=== PATIENT | female | born 1965 | race Caucasian/White ===

== ENCOUNTER → 2016-07-06 | Outpatient (CLI) | payer OTHER ==
[~2016-07-06] MED LIST: ACET1PAK PO; OXYC1TAB3 PO; PENI-82 PO
== END | disposition home or self-care (01) ==
LOC: C.PATHSPEC 17:28
PROVIDERS: ATTEND Plastic Surgery
DX: D03.59 Melanoma in situ of other part of trunk (principal)

== ENCOUNTER → 2016-09-06 | Day surgery (SDC) | payer OTHER ==
[2016-08-29 13:07] VITALS: BMI 23.0
[~2016-09-06] VITALS: Ht 157.5 cm; Wt 56.8 kg
[~2016-09-06] MED LIST changes: -ACET1PAK PO; +LIDOCAINE HCL 2% 2 ML VIAL (20MG/ML) ONE; -OXYC1TAB3 PO; -PENI-82 PO; +PROPOFOL IV EMULSION 10 MG/ML 20 ML VIAL IV ONE; +SODIUM CHLORIDE 0.9% 500ML 500 ML IV ONE
[2016-09-06 08:25] VITALS: Ht 157.5 cm; Wt 56.8 kg
--- NOTE | 2016-09-06 08:39 | Endo History and Physical ---
History & Physical Date of Service: Sep 06, 2016. Chief Complaint: SCREENING Referring Physician: DR. DUEÑAS History of Present Illness 50 yo CF who presents for screening colonoscopy. Past Surgical History Hx Cardiac Surgery: No Hx Internal Defibrillator: No Hx Pacemaker: Yes (MOST RECENT 2009) Hx Abdominal Surgery: Yes ( X2, [facility]) Hx of Implantable Prosthesis: No Hx Post-Op Nausea and Vomiting: No Hx Cancer Surgery: No Hx Thoracic Surgery: No Hx Orthopedic: No Hx Urinary Tract Surgery: No Family History None Social History Smoking Status: Never Smoker Hx Substance Use: No Hx Alcohol Use: No Allergies Coded Allergies: Etomidate (Verified Allergy, Mild, UNKNOWN REACTION, 09/06/16) "[facility] [place] TOLD ME TO NEVER TAKE IT AGAIN" Current Medications Reported Home Medications Medications Dose Route/Sig Max Daily Dose Days Date Category No Active Prescriptions or Reported Medications Rx Vital Signs Weight (Kilograms): 56.82 Height (Feet): 5 Height (Inches): 2 Date Time Temp Pulse Resp B/P (MAP) Pulse Ox O2 Delivery O2 Flow Rate FiO2 09/06/16 08:33 36.7 70 16 118/72 (87) 100 Room Air Physical Exam General Appearance: WD/WN, no apparent distress Respiratory/Chest: Auscultation: breath sounds normal Cardiovascular: Heart Auscultation: RRR Abdomen: Bowel Sounds: normal Inspection & Palpation: soft, non-distended, no tenderness, guarding & rebound Assessment and Plan Assessment: 50 yo CF who presents for screening colonoscopy. Plan: Proceed with colonoscopy.
--- NOTE | 2016-09-06 09:30 | GI REPORT ---
Procedure Date: 09/06/2016 8:44 AM Procedure: Colonoscopy Indications: Screening for colorectal malignant neoplasm Medicines: Monitored Anesthesia Care Complications: No immediate complications. Estimated Blood Loss: Estimated blood loss: none. Procedure: Pre-Anesthesia Assessment: - Prior to the procedure, a History and Physical was performed, and patient medications and allergies were reviewed. The patient's tolerance of previous anesthesia was also reviewed. The risks and benefits of the procedure and the sedation options and risks were discussed with the patient. All questions were answered, and informed consent was obtained. Prior Anticoagulants: The patient has taken no previous anticoagulant or antiplatelet agents. ASA Grade Assessment: II - A patient with mild systemic disease. After reviewing the risks and benefits, the patient was deemed in satisfactory condition to undergo the procedure. After I obtained informed consent, the scope was passed under direct vision. Throughout the procedure, the patient's blood pressure, pulse, and oxygen saturations were monitored continuously. The scope was introduced through the anus and advanced to the terminal ileum. The colonoscopy was performed without difficulty. The patient tolerated the procedure well. The quality of the bowel preparation was good. The terminal ileum, ileocecal valve, appendiceal orifice, and rectum were photographed. Findings: Two sessile polyps were found in the rectum and in the transverse colon. The polyps were 3 to 4 mm in size. These polyps were removed with a cold snare. Resection and retrieval were complete. Impression: - Two 3 to 4 mm polyps in the rectum and in the transverse colon, removed with a cold snare. Resected and retrieved. Recommendation: - Resume previous diet. - Continue present medications. - Repeat colonoscopy for surveillance based on pathology results. - Return to primary care physician as previously scheduled. Jassi Mariano, 09/06/2016 9:29:35 AM This report has been signed electronically. Note Initiated On: 09/06/2016 8:44 AM I attest to the content of the Intraoperative Record and orders documented therein, exceptions below
--- NOTE | 2016-09-06 09:31 | Discharge Instructions ---
Endoscopy Patient Instructions Date / Procedure(s) Performed Sep 06, 2016. Colonoscopy Allergy Information Coded Allergies: Etomidate (Verified Allergy, Mild, UNKNOWN REACTION, 09/06/16) "[facility] TOLD ME TO NEVER TAKE IT AGAIN" Discharge Date / Findings Sep 06, 2016. Colon polyp Rectal polyp Medication Instructions OK to resume all medications today as prescribed Reported Home Medications Medications Dose Route/Sig Max Daily Dose Days Date Category No Active Prescriptions or Reported Medications Rx Provider Instructions Activity Restrictions - No exercising or heavy lifting for 24 hours. - Do not drink alcohol the day of the procedure. - Do not drive a car or operate machinery until the day after the procedure. - Do not make any important decisions or sign important papers in 24 hours after the procedure. Following Day: - Return to full activity which may include returning to work/school. Diet Start your diet with liquids and light foods (jello, soup, juice, toast). Then eat your usual diet if not nauseated. Treatment For Common After Affects For mild abdominal pain, bloating, or excessive gas: - Rest - Eat lightly - Lie on right side Follow-Up Information Follow-up with DR. DUEÑAS as scheduled Anesthesia Information What You Should Know You have had a procedure that required some medicine to reduce anxiety and discomfort. This treatment is called moderate sedation. After receiving the treatment, you may be sleepy, but you will be able to breathe on your own. The effects of the treatment may last for several hours. Follow these instructions along with Activity/Diet recommendations noted above: * Do NOT do anything where dizziness or clumsiness would be dangerous. * Rest quietly at home today, then you can be up and about tomorrow. * Have a responsible person stay with you the rest of today. * You may have had an I.V. today. If so, you may take the dressing off later today. Recommendations Call your doctor if: * Trouble breathing * Continuous vomiting for more than 24 hours * Temperature above 101 degrees * Severe abdominal pain or bloating * Pain not relieved by pain medicine ordered * There is increased drainage or redness from any incision * A large amount of rectal bleeding greater than 2-3 tablespoons. (If you had a polyp/s removed or have hemorrhoids, a small amount of blood - from the rectum is to be expected.) * You have any unanswered questions or concerns. IN THE EVENT OF A SERIOUS EMERGENCY, GO TO THE NEAREST EMERGENCY ROOM Your discharge instructions were prepared by provider Jassi Mariano. Patient Instructions Signature Page Yelitzawinnie Ahumada Patient (or Guardian) Signature/Date: I have read and understand the instructions given to me by my caregivers. Caregiver/RN/Doctor Signature/Date: The above-named patient and/or guardian has received patient instructions on this date. + Original Patient Signature Page (only) stays with chart. Please make copy for patient.
[2016-09-06 09:54] VITALS: BP 102/67; PULSE 69; O2SAT 99
--- NOTE | 2016-09-06 09:56 | Anesthesiology Progress Note ---
Anesthesia Post Op Note Date & Time Sep 06, 2016 at 09:56 Vital Signs Pain Intensity: 0 Vital Signs Past 12 Hours Date Time Temp Pulse Resp B/P (MAP) Pulse Ox O2 Delivery O2 Flow Rate FiO2 09/06/16 09:38 70 16 106/69 (81) 100 Room Air 09/06/16 09:24 70 16 92/62 (72) 100 Room Air 09/06/16 08:33 36.7 70 16 118/72 (87) 100 Room Air Notes Mental Status: alert / awake / arousable, participated in evaluation Pt Amnestic to Procedure: Yes Nausea / Vomiting: adequately controlled Pain: adequately controlled Airway Patency, RR, SpO2: stable & adequate BP & HR: stable & adequate Hydration State: stable & adequate Anesthetic Complications: no major complications apparent
== END | disposition home or self-care (01) ==
LOC: C.GI 08:08
PROVIDERS: ATTEND Internal Medicine
DX: Z12.11 Encounter for screening for malignant neoplasm of colon (principal); D12.3 Benign neoplasm of transverse colon; K62.1 Rectal polyp; Z90.710 Acquired absence of both cervix and uterus; Z95.0 Presence of cardiac pacemaker; I49.5 Sick sinus syndrome; K21.9 Gastro-esophageal reflux disease without esophagitis

== ENCOUNTER → 2017-06-21 | Outpatient (CLI) | payer OTHER ==
--- NOTE | 2017-06-21 13:42 | DIAGNOSTIC IMAGING REPORT ---
R RIBS UNILATERAL WITH PA CHEST CLINICAL HISTORY: 51 years-old Female presenting with R07.81 Rib pain on right [id number]. TECHNIQUE: PA view of the chest as well as frontal and oblique views of the right ribs were obtained. COMPARISON: Chest CT from 10/08/2012. FINDINGS: Left subclavian pacer with leads to the right atrium and right ventricular apex. Cardiomediastinal silhouette normal. Lungs and pleural spaces clear. Upper abdomen normal. No displaced right rib fracture. Subtle cortical deformities suggested along the anterior seventh and eighth ribs. IMPRESSION: 1. Subtle cortical deformities suggested along the anterior seventh and eighth ribs. Correlate with point tenderness. No displaced rib fracture. 2. No acute cardiopulmonary disease. Electronically signed by: Tim Lechuga M.D. 06/21/2017 1:41 PM Dictated Date/Time: 06/21/2017 1:39 PM
== END | disposition home or self-care (01) ==
LOC: C.RAD1850 13:06
PROVIDERS: ATTEND Internal Medicine
DX: R07.81 Pleurodynia (principal)

== ENCOUNTER 2023-12-15 18:44 | Observation (INO) ==
[2023-12-15 19:31] LABS: Appearance Urine Clear (Clear); Bacteria Urine Automated None Seen (None Seen); Bilirubin Urine Negative (Negative); Blood Urine Negative (Negative); Cast Urine Automated 0-2 /lpf (0-2); Color Urine Yellow; Epithelial Cell Urine Auto 0-2 /hpf (0-2); Glucose Urine UA Negative (Negative); Ketones Urine Trace (Negative); Leukocyte Esterase Urine Trace (Negative); Nitrite Urine Negative (Negative); Protein Urine Trace (Negative); RBC Urine Automated 0-2 /hpf (0-2); Specific Gravity Urine 1.026 (1.000-1.030); Urobilinogen Urine Negative (Negative); pH Urine 5.5 (4.5-7.5)
[2023-12-15 19:51] LABS: Basophils # (auto) 0.04 K/uL (0.00-0.20); Basophils % (auto) 0.3 %; Eosinophils # (auto) 0.01 K/uL (0.00-0.50); Eosinophils % (auto) 0.1 %; Hematocrit (blood only) 43.7 % (37.0-47.0); Hemoglobin 15.9 g/dl (12.0-16.0); Immature Granulocytes # (auto) 0.05 K/uL (0.01-0.20); Immature Granulocytes % (auto) 0.4 %; Lymphocytes # (auto) 2.29 K/uL (1.20-3.40); Lymphocytes % (auto) 16.8 %; Mean Corpuscular Hemoglobin 33.7 pg (25.0-34.0); Mean Corpuscular Hgb Conc 36.4 g/dL (32.0-36.0); Mean Corpuscular Volume 92.6 fL (80.0-100.0); Mean Platelet Volume 10.4 fL (9.4-12.4); Monocytes # (auto) 0.79 K/uL (0.11-0.59); Monocytes % (auto) 5.8 %; Neutrophils # (auto) 10.48 K/uL (1.40-6.50); Neutrophils % (auto) 76.6 %; Platelet Count 285 K/uL (130-400); RDW Coefficient of Variation 12.3 % (11.5-14.5); RDW Standard Deviation 42.1 fL (36.4-46.3); Red Blood Count 4.72 M/uL (4.20-5.40); White Blood Count 13.66 K/ul (4.8-10.8)
[2023-12-15 19:59] LABS: Albumin Globulin Ratio 2.1 (0.9-2); Albumin Level 5.1 gm/dl (3.4-5.0); BUN Creatinine Ratio 12.4 (10-20); Calcium 10.1 mg/dl (8.6-10.3); Creatinine Clr Calc Pharmacy 53.8 ml/min; Globulin 2.4 gm/dl (2.5-4.0); Total Protein 7.5 gm/dl (6.0-8.3)
[2023-12-15 20:00] LABS: Pregnancy Test, Serum Negative (Negative)
[2023-12-15] MEDS: OPTIRAY 320 125ml IV ONE (20:06)
[2023-12-15 20:09] LABS: INR 1.1 (0.9-1.1); Prothrombin Time 11.4 Seconds (9.0-12.0)
--- NOTE | 2023-12-15 20:21 | Emergency Department Note ---
Impression & Plan BRBPR (bright red blood per rectum), Abdominal pain, Leukocytosis, Acute hypokalemia ED Provider Note HISTORY OF PRESENT ILLNESS: Patient is a 58-year-old female presenting with abdominal pain and bright red blood per rectum. Patient reports that she woke up today and was feeling generally unwell. She woke up suddenly at 4 AM feeling like she had to have a bowel movement. Reports that she was unable to and went back to bed and then at 9 AM she had an episode of bright red bloody stool in the toilet bowl. She denies any pain with the bowel movement. She states she has had a total of 4 episodes of bright red bloody stool throughout the day today. Reports that it does not even look like there is fecal material and it just looks like there is blood. Denies any passage of clots. She is not on any anticoagulant or antiplatelet therapies. She complains of generalized abdominal pain and nausea. She denies any vomiting. Reports an abdominal surgical history significant for sections and an appendectomy. She denies any recent fevers. Denies any dysuria or hematuria. ROS: as above PHYSICAL EXAM: Constitutional: Patient appears in no acute distress. HENT: Head: Normocephalic and atraumatic. Eyes: EOMI, PERRL Mouth/Throat: Mucous membranes moist. Neck: Trachea midline. Neck supple. Cardiovascular: RRR, No murmurs, rubs or gallops. Intact distal pulses. Pulmonary/Chest: No respiratory distress. Breath sounds clear and equal bilaterally. No wheezes or rales. Abdominal: Abdomen soft, no rebound or guarding. Diffuse TTP Musculoskeletal: No edema, tenderness or deformity noted. Skin: Warm and dry. No rash, erythema, pallor or cyanosis Psychiatric: Appropriate mood and affect for situation. Neurological: Alert and keenly responsive. CN II-XII grossly intact, moving all extremities equally and fully. MDM: - Vitals signs stable - History obtained via patient. History as above. - Chronic conditions affecting care: sick sinus syndrome (s/p pacemaker); GERD; HLD; obesity - Differential diagnoses include, but are not limited to: bleeding peptic ulcer; aortic dissection vs aneurysm; diverticular bleed; hemorrhoidal bleed - Order placed for continuous cardiac monitoring. At this time, monitor showed rate of 70 bpm with normal sinus rhythm, per my interpretation. - External medical records reviewed. Colonoscopy dated 11/28/2021 was reviewed. Patient had a normal colonoscopy at that time and no specimens were collected. - Laboratory workup interpreted by myself showed leukocytosis (WBC 13.66); normal hemoglobin (15.9); normal PT/INR; hypokalemia (K 3.0); normal lactate; normal lipase; normal liver function - UA noted to have WBCs and trace leukocyte esterase. No bacteria noted and patient asymptomatic - will await urine culture - CT abdomen/pelvis with IV contrast asymmetric mucosal thickening throughout the colon most prominent at the distal descending and sigmoid colonic segments with subtle pericolonic fat stranding and hyperemia. No active extravasation of contrast noted. This is a concerning site for the GI bleed. - Patient complaining of 5 out of 10 abdominal pain and nausea. Given 1 g IV Tylenol and 4 mg IV Zofran. Given her leukocytosis and pericolonic fat stranding on CT scan, IV Zosyn was empirically ordered. Will admit to hospitalist service for further workup and GI consultation - Discussion was had with case management rn about patient's case and need for admission - Hospitalist consulted for admission - Patient admitted to [facility] hospitalist service for further evaluation and management. ASSESSMENT AND PLAN: Diagnosis: bright red blood per rectum; abdominal pain; leukocytosis; acute hypokalemia Plan: admit Past Med/Surg History Problem List (Updated 12/15/23 @ 21:37 by Rianna De La Cruz MD) Acute hypokalemia (Acute) Leukocytosis (Acute) Abdominal pain (Acute) BRBPR (bright red blood per rectum) (Acute) BMI 23.0-23.9, adult Encounter for health maintenance examination Rib injury Subacromial bursitis Rotator cuff tendinitis Decreased ROM of right shoulder GERD (gastroesophageal reflux disease) History of colon polyps Encounter for pre-operative examination Bilateral pubic rami fractures Abnormal weight gain GERD (gastroesophageal reflux disease) Hypertriglyceridemia Dietary counseling and surveillance Shoulder pain Encounter for health maintenance examination SSS (sick sinus syndrome) Hip fracture HX Pacemaker (Chronic) LAST CHECKED 11/2021-- FOLLOWS W/ DR FRIED [employer] Osteoporosis Medical History Hip fracture HX History of bradycardia PACEMAKER INSERTION History of COVID-19 08/30/2021- FLU LIKE SYMPTOMS, ACHY, FATIGUE, CHILLS, FEVER, NO HOSPITALIZATION, NO CURRENT ISSUES Osteoporosis Pacemaker LAST CHECKED 11/2021-- FOLLOWS W/ DR FRIED [employer] Surgical History Hx of colonoscopy S/P abdominal hysterectomy S/P placement of cardiac pacemaker H/O oral surgery S/P section S/P appendectomy History of ankle surgery H/O: hysterectomy Family History Father Coronary heart disease Diabetes Nephrolithiasis Mother Osteoporosis Aortic aneurysm Grandmother (Maternal) Osteoporosis Sister Nephrolithiasis Other Myocardial infarction Denies family history of Ovarian cancer Prostate cancer Breast cancer Colorectal cancer Social History Smoking Status: Never smoker Second Hand Exposure: No; Do You Dip or Chew Tobacco: No; Hx Alcohol Use: No (social) Hx Substance Use: No Preferred Language: Croatian Communication Ability: Effective Visual Impairment: No Limitations Hearing Ability: Normal 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 Beliefs That Will Affect Care: None marital status: Current Living Situation: Spouse current occupational status: employed Feels Safe at Home: Yes Childhood Exposure to Second-Hand Smoke: No Dental Care, Regularly: Yes Physical Activity Frequency: 1-2 Times per Week Seatbelt Use: always Assistive Devices: Contacts and Glasses Allergies Allergies Allergy/AdvReac Type Severity Reaction Status Date / Time etomidate Allergy Mild UNKNOWN Verified 08/31/23 07:58 REACTION Home Meds Home Medications Medication Instructions Recorded Confirmed calcium carbonate 600 mg PO QAM 10/10/19 12/15/23 alendronate 70 mg tablet 70 mg PO WK 12/15/23 12/15/23 Previous Rx's Medication Instructions Recorded hydrochlorothiazide 25 mg tablet 25 mg PO DAILY PRN edema #90 tabs 08/31/23 Results & Data (ED) Vital Signs Vital Signs - 24 hr 12/15/23 18:52 12/15/23 20:00 12/15/23 21:10 Temperature 36.6 C Temperature Source Temporal Artery Scan Pulse Rate - Lying 70 Pulse Rate - Sitting 70 Pulse Rate - Standing 76 Pulse Rate 87 70 Pulse Rate [Apical] Respiratory Rate 20 Blood Pressure - Lying 111/69 Blood Pressure - Sitting 105/73 Blood Pressure- Standing 99/70 L Blood Pressure 124/72 Blood Pressure [Left Arm] Blood Pressure Mean 89 Blood Pressure Mean [Left Arm] Blood Pressure Position [Left Arm] Pulse Oximetry 99 Oxygen Delivery Method Room Air Sepsis Recent Fever Within 48 Hours No Sepsis New/Unexplained Change in Mental Status N/A Sepsis Action Taken by Nursing No Action Required 12/15/23 21:32 Temperature Temperature Source Pulse Rate - Lying Pulse Rate - Sitting Pulse Rate - Standing Pulse Rate Pulse Rate [Apical] 70 Respiratory Rate 16 Blood Pressure - Lying Blood Pressure - Sitting Blood Pressure- Standing Blood Pressure Blood Pressure [Left Arm] 110/79 Blood Pressure Mean Blood Pressure Mean [Left Arm] 89 Blood Pressure Position [Left Arm] Semi-fowlers Pulse Oximetry 99 Oxygen Delivery Method Room Air Sepsis Recent Fever Within 48 Hours Sepsis New/Unexplained Change in Mental Status Sepsis Action Taken by Nursing Laboratory Data 12/15/23 19:06 12/15/23 19:06 Lab Results 12/15/23 Range/Units 19:06 WBC 13.66 H (4.8-10.8) K/ul RBC 4.72 (4.20-5.40) M/uL Hgb 15.9 (12.0-16.0) g/dl Hct 43.7 (37.0-47.0) % MCV 92.6 (80.0-100.0) fL MCH 33.7 (25.0-34.0) pg MCHC 36.4 H (32.0-36.0) g/dL RDW Std Deviation 42.1 (36.4-46.3) fL RDW Coeff of [place] 12.3 (11.5-14.5) % Plt Count 285 (130-400) K/uL MPV 10.4 (9.4-12.4) fL Immature Gran % (Auto) 0.4 % Neut % (Auto) 76.6 % Lymph % (Auto) 16.8 % [place] % (Auto) 5.8 % Eos % (Auto) 0.1 % Baso % (Auto) 0.3 % Neut # (Auto) 10.48 H (1.40-6.50) K/uL Lymph # (Auto) 2.29 (1.20-3.40) K/uL [place] # (Auto) 0.79 H (0.11-0.59) K/uL Eos # (Auto) 0.01 (0.00-0.50) K/uL Baso # (Auto) 0.04 (0.00-0.20) K/uL Immature Gran # (Auto) 0.05 (0.01-0.20) K/uL PT 11.4 (9.0-12.0) Seconds INR 1.1 (0.9-1.1) Sodium 141 (136-145) mmol/L Potassium 3.0 L (3.5-5.1) mmol/L Chloride 100 (98-107) mmol/L Carbon Dioxide 31 (21-32) mmol/L Anion Gap 10 (3-11) BUN 11 (6-23) mg/dl Creatinine 0.89 (0.6-1.2) mg/dl Est Cr Clr Drug Dosing 53.8 ml/min eGFR 74.64 BUN/Creatinine Ratio 12.4 (10-20) Glucose 88 (70-99(Fasting)) mg/dl Lactate 1.2 (0.4-2.0) mmol/L Calcium 10.1 (8.6-10.3) mg/dl Total Bilirubin 1.0 (0.2-1.0) mg/dl AST 19 (13-39) U/L ALT 25 (7-52) U/L Alkaline Phosphatase 66 (34-104) U/L Total Protein 7.5 (6.0-8.3) gm/dl Albumin 5.1 H (3.4-5.0) gm/dl Globulin 2.4 L (2.5-4.0) gm/dl Albumin/Globulin Ratio 2.1 H (0.9-2) Lipase 72 (11-82) U/L HCG, Qual Negative (Negative) Urine Color Yellow Urine Appearance Clear (Clear) Urine pH 5.5 (4.5-7.5) Ur Specific [place] 1.026 (1.000-1.030) Urine Protein Trace H (Negative) Urine Glucose (UA) Negative (Negative) Urine Ketones Trace H (Negative) Urine Blood Negative (Negative) Urine Nitrite Negative (Negative) Urine Bilirubin Negative (Negative) Urine Urobilinogen Negative (Negative) Ur Leukocyte Esterase Trace H (Negative) Urine WBC (Auto) 11-20 H (0-5) /hpf Urine RBC (Auto) 0-2 (0-2) /hpf U Hyaline Cast (Auto) 0-2 (0-2) /lpf U Epithel Cells (Auto) 0-2 (0-2) /hpf Urine Bacteria (Auto) None Seen (None Seen) Administered Medications Discontinued Medications Ioversol (Optiray 320 125ml) 119 ml IV ONCE ONE Stop: 12/15/23 20:07 Last Admin: 12/15/23 20:06 Dose: 119 ml Documented By: EDK Imaging Data Radiologist's Impression: Abdomen/Pelvis CTA 12/15/23 18:59 Exam(s): CTA ABDOMEN + PELVIS With Contrast IV Amt: OPTIRAY 320 119ML EXAM: CT Angiography Abdomen and Pelvis With Intravenous Contrast CLINICAL HISTORY: abd pain; right red blood per rectum. TECHNIQUE: Axial computed tomographic angiography images of the abdomen and pelvis with intravenous contrast. CTDI is 20.96 mGy and DLP is 400.16 mGy-cm. Automated exposure control was utilized for the study. A dose lowering technique was utilized adhering to the principles of ALARA. MIP reconstructed images were created and reviewed. CONTRAST: Patient received OPTIRAY 320 119ML of IV contrast COMPARISON: No relevant prior studies available. FINDINGS: VASCULATURE: Aorta: No acute findings. No abdominal aortic aneurysm. No dissection. Celiac trunk and mesenteric arteries: No acute findings. No occlusion or significant stenosis. Renal arteries: No acute findings. No occlusion or significant stenosis. Iliac arteries: No acute findings. No occlusion or significant stenosis. Lung bases: Unremarkable. No mass. No consolidation. ABDOMEN: Liver: Hepatic steatosis. Gallbladder and bile ducts: Unremarkable. No calcified stones. No ductal dilation. Pancreas: Unremarkable. No ductal dilation. No mass. Spleen: Unremarkable. No splenomegaly. Adrenals: Unremarkable. No mass. Kidneys and ureters: Unremarkable. No hydronephrosis. No solid mass. Stomach and bowel: Precontrast imaging was not performed, limiting evaluation, given scattered hyperdense material throughout several mid to distal small bowel loops in the pelvis. No evidence for bowel obstruction. There is asymmetric mucosal thickening throughout the colon, most prominent involving the distal descending and sigmoid segments with subtle pericolonic fat stranding and hyperemia. No active intraluminal arterial contrast extravasation noted. Stomach is moderately distended with fluid and gas. There is minimal hyperdensity within the gastric rugae along the posterior lateral aspect of the mid body of the stomach. No gastric wall thickening. PELVIS: Appendix: No findings to suggest acute appendicitis. Bladder: Unremarkable. No mass. Reproductive: Status post hysterectomy. ABDOMEN and PELVIS: Intraperitoneal space: Unremarkable. No significant fluid collection. No free air. Bones/joints: No acute fracture. No dislocation. Soft tissues: Unremarkable. Lymph nodes: Unremarkable. No enlarged lymph nodes. IMPRESSION: 1. Precontrast imaging was not performed, limiting evaluation, given scattered hyperdense material throughout several mid to distal small bowel loops in the pelvis. 2. No evidence for bowel obstruction. There is asymmetric mucosal thickening throughout the colon, most prominent involving the distal descending and sigmoid colonic segments with subtle pericolonic fat stranding and hyperemia. No active intraluminal arterial contrast extravasation noted. However, this is the presumed site of the reported GI bleed. Given the most prominent abnormal findings, this is favored over a small bowel source given the clinical history and CT findings. Inflammatory or infectious colitis is the primary consideration. No pneumatosis or pneumoperitoneum. Electronically signed by: Ezekiel Farah MD 12/15/23 21:17 PM Discharge Plan Visit Data Chief Complaint: Abdominal Pain Stated Complaint: ABD PAIN, BACK, NAUSEA ED Provider: Rianna De La Cruz Discharge Problem: BRBPR (bright red blood per rectum), Abdominal pain, Leukocytosis, Acute hypokalemia Forms Stand Alone Forms: My [employer] Prescriptions Prescriptions: No Action calcium carbonate 600 mg calcium (1,500 mg) tablet 600 mg PO QAM hydrochlorothiazide 25 mg tablet 25 mg PO DAILY PRN (Reason: edema) Qty: 90 2RF alendronate 70 mg tablet 70 mg PO WK Rx Instructions: MONDAYS Referrals Referrals: Miguel Yee MD [Primary Care Provider] -
--- NOTE | 2023-12-15 21:17 | CT Scan Report ---
Exam(s): CTA ABDOMEN + PELVIS With Contrast IV Amt: OPTIRAY 320 119ML EXAM: CT Angiography Abdomen and Pelvis With Intravenous Contrast CLINICAL HISTORY: abd pain; right red blood per rectum. TECHNIQUE: Axial computed tomographic angiography images of the abdomen and pelvis with intravenous contrast. CTDI is 20.96 mGy and DLP is 400.16 mGy-cm. Automated exposure control was utilized for the study. A dose lowering technique was utilized adhering to the principles of ALARA. MIP reconstructed images were created and reviewed. CONTRAST: Patient received OPTIRAY 320 119ML of IV contrast COMPARISON: No relevant prior studies available. FINDINGS: VASCULATURE: Aorta: No acute findings. No abdominal aortic aneurysm. No dissection. Celiac trunk and mesenteric arteries: No acute findings. No occlusion or significant stenosis. Renal arteries: No acute findings. No occlusion or significant stenosis. Iliac arteries: No acute findings. No occlusion or significant stenosis. Lung bases: Unremarkable. No mass. No consolidation. ABDOMEN: Liver: Hepatic steatosis. Gallbladder and bile ducts: Unremarkable. No calcified stones. No ductal dilation. Pancreas: Unremarkable. No ductal dilation. No mass. Spleen: Unremarkable. No splenomegaly. Adrenals: Unremarkable. No mass. Kidneys and ureters: Unremarkable. No hydronephrosis. No solid mass. Stomach and bowel: Precontrast imaging was not performed, limiting evaluation, given scattered hyperdense material throughout several mid to distal small bowel loops in the pelvis. No evidence for bowel obstruction. There is asymmetric mucosal thickening throughout the colon, most prominent involving the distal descending and sigmoid segments with subtle pericolonic fat stranding and hyperemia. No active intraluminal arterial contrast extravasation noted. Stomach is moderately distended with fluid and gas. There is minimal hyperdensity within the gastric rugae along the posterior lateral aspect of the mid body of the stomach. No gastric wall thickening. PELVIS: Appendix: No findings to suggest acute appendicitis. Bladder: Unremarkable. No mass. Reproductive: Status post hysterectomy. ABDOMEN and PELVIS: Intraperitoneal space: Unremarkable. No significant fluid collection. No free air. Bones/joints: No acute fracture. No dislocation. Soft tissues: Unremarkable. Lymph nodes: Unremarkable. No enlarged lymph nodes. IMPRESSION: 1. Precontrast imaging was not performed, limiting evaluation, given scattered hyperdense material throughout several mid to distal small bowel loops in the pelvis. 2. No evidence for bowel obstruction. There is asymmetric mucosal thickening throughout the colon, most prominent involving the distal descending and sigmoid colonic segments with subtle pericolonic fat stranding and hyperemia. No active intraluminal arterial contrast extravasation noted. However, this is the presumed site of the reported GI bleed. Given the most prominent abnormal findings, this is favored over a small bowel source given the clinical history and CT findings. Inflammatory or infectious colitis is the primary consideration. No pneumatosis or pneumoperitoneum. Electronically signed by: Ezekiel Farah MD 12/15/23 21:17 PM
[2023-12-15] MEDS: ONDANSETRON INJ 2 MG/ML 2 ML VIAL IV STA (21:38)
[2023-12-15] MEDS: ACETAMINOPHEN 1,000 MG/100 ML VIAL IV STA (21:42)
[2023-12-15] MEDS: PIPERACILLIN/TAZOBACTAM 4.5 GM/100 ML BAG IV ONE (21:47)
[2023-12-15 22:15] LABS: Magnesium 2.1 mg/dl (1.7-2.4)
--- NOTE | 2023-12-15 22:33 | History & Physical Report ---
Date of Service December 15, 2023 Assessment & Plan (1) BRBPR (bright red blood per rectum): (2) Diverticulitis: (3) Colitis: (4) Abdominal pain: (5) Acute hypokalemia: (6) SSS (sick sinus syndrome): (7) Pacemaker: Admission and Anticipated Discharge Date Admission Date: Colitis/diverticulitis/bright red blood per rectum- N.p.o. after midnight Hemoglobin 15.9 on admission, with type and screen ordered Most recent colonoscopy on 11/24/2021 with the entire examined colon being normal CT scan and physical examination most consistent diverticulitis versus colitis No new food or questionable food intakes Order stool PCR and stool for C. difficile Zosyn 4.5 g IV every 8 hours Pantoprazole 40 mg IV daily Acetaminophen 1 g IV every 8 hours as needed for mild pain or fever Morphine sulfate 2 mg IV every 4 hours as needed for moderate pain Zofran 4 mg IV every 6 hours as needed NSS + KCl 20 mEq at 100 mL/h x 1 L. Patient reports that she has not taken HCTZ for months. She does report having taking ibuprofen 400 mg daily for shoulder discomfort for about 5 days during the past week Consult gastroenterology History of Present Illness Chief Complaint: The patient presents to the emergency department with report of abdominal pain and 4 episodes of bright red blood per rectum. She reports that about 4:00 this morning, she awoke with a sense of needing to move her bowels, but was unable to. Later on in the morning at about 9:00, she had an episode of bright red blood in the toilet bowl, and then had 3 additional episodes throughout the day. She did develop left lower quadrant discomfort, and nausea without vomiting. Travels or sick exposures. She denies any unusual food intakes. She has had routine colonoscopies every 5 years, with the most recent being 2 years ago without usual findings other than polyps. Primary Care Provider: Miguel Yee MD The patient is a 58-year-old female with a past medical history including GERD, colon polyps, bilateral pubic rami fractures, GERD, hypertriglyceridemia, SSS status post pacemaker, hip fracture, and osteoporosis. She presents to the emergency department with symptoms as noted above. As part of her workup, she did undergo CTA of abdomen and pelvis, which showed mucosal thickening throughout most of the colon, with most prominent in the distal descending colon and sigmoid colon, with inflammatory versus infectious colitis as a diagnosis of exclusion. Allergies Allergy/AdvReac Type Severity Reaction Status Date / Time etomidate Allergy Mild UNKNOWN Verified 12/15/23 21:38 REACTION Home Medications Medication Instructions Recorded Confirmed Type calcium carbonate 600 mg PO QAM 10/10/19 12/15/23 History hydrochlorothiazide 25 mg tablet 25 mg PO DAILY PRN edema #90 tabs 08/31/23 12/15/23 Rx alendronate 70 mg tablet 70 mg PO WK 12/15/23 12/15/23 History cholecalciferol (vitamin D3) 25 25 mcg PO QAM 12/15/23 12/15/23 History mcg (1,000 unit) tablet (Vitamin D3) Past Med/Surg History Problem List (Updated 12/16/23 @ 03:07 by Abraham Handy MD) Colitis Diverticulitis Acute hypokalemia (Acute) Leukocytosis (Acute) Abdominal pain (Acute) BRBPR (bright red blood per rectum) (Acute) BMI 23.0-23.9, adult Encounter for health maintenance examination Rib injury Subacromial bursitis Rotator cuff tendinitis Decreased ROM of right shoulder GERD (gastroesophageal reflux disease) History of colon polyps Encounter for pre-operative examination Bilateral pubic rami fractures Abnormal weight gain GERD (gastroesophageal reflux disease) Hypertriglyceridemia Dietary counseling and surveillance Shoulder pain Encounter for health maintenance examination SSS (sick sinus syndrome) Hip fracture HX Pacemaker (Chronic) LAST CHECKED 11/2021-- FOLLOWS W/ KENNEDY NARANJO Osteoporosis Medical History Hip fracture HX History of bradycardia PACEMAKER INSERTION History of COVID-19 08/30/2021- FLU LIKE SYMPTOMS, ACHY, FATIGUE, CHILLS, FEVER, NO HOSPITALIZATION, NO CURRENT ISSUES Osteoporosis Pacemaker LAST CHECKED 11/2021-- FOLLOWS [place]/ KENNEDY NARANJO Surgical History Hx of colonoscopy S/P abdominal hysterectomy S/P placement of cardiac pacemaker H/O oral surgery S/P section S/P appendectomy History of ankle surgery H/O: hysterectomy Family History Father Coronary heart disease Diabetes Nephrolithiasis Mother Osteoporosis Aortic aneurysm Grandmother (Maternal) Osteoporosis Sister Nephrolithiasis Other Myocardial infarction Denies family history of Ovarian cancer Prostate cancer Breast cancer Colorectal cancer Social History Smoking Status: Never smoker Second Hand Exposure: No; Do You Dip or Chew Tobacco: No; Hx Alcohol Use: Yes Hx Substance Use: No Preferred Language: German Communication Ability: Effective Visual Impairment: No Limitations Hearing Ability: Normal Shoulder Boner Required: No Beliefs That Will Affect Care: None marital status: Current Living Situation: Spouse current occupational status: employed Feels Safe at Home: Yes Childhood Exposure to Second-Hand Smoke: No Dental Care, Regularly: Yes Physical Activity Frequency: 1-2 Times per Week Seatbelt Use: always Assistive Devices: Contacts Review of Systems Review of Systems: The patient denies chest pain, palpitations, shortness of breath, dyspnea on exertion, cough, lower extremity swelling, sore throat, fevers, chills, sweats, vomiting, blood in urine, dysuria, urinary frequency or urgency, lightheadedness, dizziness, headache, memory loss, loss of consciousness, rash, imbalance, focal or generalized weakness, numbness or tingling in arms or legs, generalized arthralgias or myalgias, back or neck pain, or night sweats. The review of systems is otherwise negative other than for that already noted above, and at least 10 systems have been reviewed. Physical Exam Physical Exam: The patient is awake, alert and oriented 3, well developed and well nourished, normocephalic and atraumatic, lying in bed and in no acute distress. HEENT--PERRL, EOMI, mucous membranes and oropharynx mildly dry. Neck--supple. No JVD. No bruits. Thyroid normal, trachea midline, no adenopathy. Heart--normal S1 and S2. No murmurs, rubs or gallops. Lungs--clear bilaterally, no respiratory distress, no accessory muscle use. Abdomen--normal bowel sounds and soft. Mildly tender left lower quadrant. Nondistended, no hernias or masses, no organomegaly. Extremities-- No edema. Dermatologic--normal skin turgor, normal color, no abnormal lymph nodes, no rash. Neurologic--cranial nerves II through XII grossly intact. Rheumatologic--normal range of motion. Psychiatric--normal affect. Results & Data Results & Data Vital Signs (Past 12 Hours) Vital Signs Temp Pulse Pulse Resp BP BP Pulse Ox 12/15/23 21:32 70 16 110/79 99 12/15/23 20:00 70 12/15/23 18:52 36.6 C 87 20 124/72 99 O2 Del Method 12/15/23 21:32 Room Air 12/15/23 20:00 12/15/23 18:52 Room Air Laboratory Results Laboratory Results WBC 13.66 K/ul (4.8-10.8) H 12/15/23 19:06 RBC 4.72 M/uL (4.20-5.40) 12/15/23 19:06 Hgb 15.9 g/dl (12.0-16.0) 12/15/23 19:06 Hct 43.7 % (37.0-47.0) 12/15/23 19:06 MCV 92.6 fL (80.0-100.0) 12/15/23 19:06 MCH 33.7 pg (25.0-34.0) 12/15/23 19:06 MCHC 36.4 g/dL (32.0-36.0) H 12/15/23 19:06 RDW Std Deviation 42.1 fL (36.4-46.3) 12/15/23 19:06 RDW Coeff of [place] 12.3 % (11.5-14.5) 12/15/23 19:06 Plt Count 285 K/uL (130-400) 12/15/23 19:06 MPV 10.4 fL (9.4-12.4) 12/15/23 19:06 Immature Gran % (Auto) 0.4 % 12/15/23 19:06 Neut % (Auto) 76.6 % 12/15/23 19:06 Lymph % (Auto) 16.8 % 12/15/23 19:06 [place] % (Auto) 5.8 % 12/15/23 19:06 Eos % (Auto) 0.1 % 12/15/23 19:06 Baso % (Auto) 0.3 % 12/15/23 19:06 Neut # (Auto) 10.48 K/uL (1.40-6.50) H 12/15/23 19:06 Lymph # (Auto) 2.29 K/uL (1.20-3.40) 12/15/23 19:06 [place] # (Auto) 0.79 K/uL (0.11-0.59) H 12/15/23 19:06 Eos # (Auto) 0.01 K/uL (0.00-0.50) 12/15/23 19:06 Baso # (Auto) 0.04 K/uL (0.00-0.20) 12/15/23 19:06 Immature Gran # (Auto) 0.05 K/uL (0.01-0.20) 12/15/23 19:06 PT 11.4 Seconds (9.0-12.0) 12/15/23 19:06 INR 1.1 (0.9-1.1) 12/15/23 19:06 Sodium 141 mmol/L (136-145) 12/15/23 19:06 Potassium 3.0 mmol/L (3.5-5.1) L 12/15/23 19:06 Chloride 100 mmol/L (98-107) 12/15/23 19:06 Carbon Dioxide 31 mmol/L (21-32) 12/15/23 19:06 Anion Gap 10 (3-11) 12/15/23 19:06 BUN 11 mg/dl (6-23) 12/15/23 19:06 Creatinine 0.89 mg/dl (0.6-1.2) 12/15/23 19:06 Est Cr Clr Drug Dosing 53.8 ml/min 12/15/23 19:06 eGFR 74.64 12/15/23 19:06 BUN/Creatinine Ratio 12.4 (10-20) 12/15/23 19:06 Glucose 88 mg/dl (70-99(Fasting)) 12/15/23 19:06 Lactate 1.2 mmol/L (0.4-2.0) 12/15/23 19:06 Calcium 10.1 mg/dl (8.6-10.3) 12/15/23 19:06 Magnesium 2.1 mg/dl (1.7-2.4) 12/15/23 19:06 Total Bilirubin 1.0 mg/dl (0.2-1.0) 12/15/23 19:06 AST 19 U/L (13-39) 12/15/23 19:06 ALT 25 U/L (7-52) 12/15/23 19:06 Alkaline Phosphatase 66 U/L (34-104) 12/15/23 19:06 Total Protein 7.5 gm/dl (6.0-8.3) 12/15/23 19:06 Albumin 5.1 gm/dl (3.4-5.0) H 12/15/23 19:06 Globulin 2.4 gm/dl (2.5-4.0) L 12/15/23 19:06 Albumin/Globulin Ratio 2.1 (0.9-2) H 12/15/23 19:06 Lipase 72 U/L (11-82) 12/15/23 19:06 HCG, Qual Negative (Negative) 12/15/23 19:06 Urine Color Yellow 12/15/23 19:06 Urine Appearance Clear (Clear) 12/15/23 19:06 Urine pH 5.5 (4.5-7.5) 12/15/23 19:06 Ur Specific [place] 1.026 (1.000-1.030) 12/15/23 19:06 Urine Protein Trace (Negative) H 12/15/23 19:06 Urine Glucose (UA) Negative (Negative) 12/15/23 19:06 Urine Ketones Trace (Negative) H 12/15/23 19:06 Urine Blood Negative (Negative) 12/15/23 19:06 Urine Nitrite Negative (Negative) 12/15/23 19:06 Urine Bilirubin Negative (Negative) 12/15/23 19:06 Urine Urobilinogen Negative (Negative) 12/15/23 19:06 Ur Leukocyte Esterase Trace (Negative) H 12/15/23 19:06 Urine WBC (Auto) 11-20 /hpf (0-5) H 12/15/23 19:06 Urine RBC (Auto) 0-2 /hpf (0-2) 12/15/23 19:06 U Hyaline Cast (Auto) 0-2 /lpf (0-2) 12/15/23 19:06 U Epithel Cells (Auto) 0-2 /hpf (0-2) 12/15/23 19:06 Urine Bacteria (Auto) None Seen (None Seen) 11/09/24 19:06 Blood Type O Positive 12/15/23 21:35 Antibody Screen NEGATIVE 12/15/23 21:35 Impressions Abdomen/Pelvis CTA 12/15/23 18:59 Exam(s): CTA ABDOMEN + PELVIS With Contrast IV Amt: OPTIRAY 320 119ML EXAM: CT Angiography Abdomen and Pelvis With Intravenous Contrast CLINICAL HISTORY: abd pain; right red blood per rectum. TECHNIQUE: Axial computed tomographic angiography images of the abdomen and pelvis with intravenous contrast. CTDI is 20.96 mGy and DLP is 400.16 mGy-cm. Automated exposure control was utilized for the study. A dose lowering technique was utilized adhering to the principles of ALARA. MIP reconstructed images were created and reviewed. CONTRAST: Patient received OPTIRAY 320 119ML of IV contrast COMPARISON: No relevant prior studies available. FINDINGS: VASCULATURE: Aorta: No acute findings. No abdominal aortic aneurysm. No dissection. Celiac trunk and mesenteric arteries: No acute findings. No occlusion or significant stenosis. Renal arteries: No acute findings. No occlusion or significant stenosis. Iliac arteries: No acute findings. No occlusion or significant stenosis. Lung bases: Unremarkable. No mass. No consolidation. ABDOMEN: Liver: Hepatic steatosis. Gallbladder and bile ducts: Unremarkable. No calcified stones. No ductal dilation. Pancreas: Unremarkable. No ductal dilation. No mass. Spleen: Unremarkable. No splenomegaly. Adrenals: Unremarkable. No mass. Kidneys and ureters: Unremarkable. No hydronephrosis. No solid mass. Stomach and bowel: Precontrast imaging was not performed, limiting evaluation, given scattered hyperdense material throughout several mid to distal small bowel loops in the pelvis. No evidence for bowel obstruction. There is asymmetric mucosal thickening throughout the colon, most prominent involving the distal descending and sigmoid segments with subtle pericolonic fat stranding and hyperemia. No active intraluminal arterial contrast extravasation noted. Stomach is moderately distended with fluid and gas. There is minimal hyperdensity within the gastric rugae along the posterior lateral aspect of the mid body of the stomach. No gastric wall thickening. PELVIS: Appendix: No findings to suggest acute appendicitis. Bladder: Unremarkable. No mass. Reproductive: Status post hysterectomy. ABDOMEN and PELVIS: Intraperitoneal space: Unremarkable. No significant fluid collection. No free air. Bones/joints: No acute fracture. No dislocation. Soft tissues: Unremarkable. Lymph nodes: Unremarkable. No enlarged lymph nodes. IMPRESSION: 1. Precontrast imaging was not performed, limiting evaluation, given scattered hyperdense material throughout several mid to distal small bowel loops in the pelvis. 2. No evidence for bowel obstruction. There is asymmetric mucosal thickening throughout the colon, most prominent involving the distal descending and sigmoid colonic segments with subtle pericolonic fat stranding and hyperemia. No active intraluminal arterial contrast extravasation noted. However, this is the presumed site of the reported GI bleed. Given the most prominent abnormal findings, this is favored over a small bowel source given the clinical history and CT findings. Inflammatory or infectious colitis is the primary consideration. No pneumatosis or pneumoperitoneum. Electronically signed by: Ezekiel Farah MD 12/15/23 21:17 PM Code Status & VTE Plan Code Status Full code VTE Prophylaxis Plan VTE Prophylaxis will be ordered: Yes PG Care Time/CCT Total # of Minutes Spent Total Time Spent with Patient: Total time spent is greater than 50% in coordination of care (as documented) at patient's floor/unit and/or counseling patient: Coding Level of Care Code 06694 INT INP/OBS CARE 2/55MIN Diagnoses BRBPR (bright red blood per rectum) K62.5 Diverticulitis K57.92 Colitis K52.9 Abdominal pain R10.9 Acute hypokalemia E87.6 SSS (sick sinus syndrome) I49.5 Pacemaker Z95.0
[2023-12-15] MEDS: PANTOprazole 40 MG/10 ML SYR IV ONE (23:17)
[2023-12-15] MEDS: MoRPHine SULFATE 2 MG/ML CARP IV PRN (23:51)
[2023-12-16 00:10] VITALS: RESP 16
[2023-12-16] MEDS: NSS + 20MEQ KCL 20 MEQ/1,000 ML BAG IV SCH (01:55)
[2023-12-16] MEDS: PIPERACILLIN/TAZOBACTAM 4.5 GM/100 ML BAG IV SCH (03:32)
[2023-12-16] MEDS: ONDANSETRON INJ 2 MG/ML 2 ML VIAL IV PRN (05:55)
[2023-12-16] MEDS: ACETAMINOPHEN 1,000 MG/100 ML VIAL IV PRN (07:24)
--- NOTE | 2023-12-16 07:28 | Hospitalist Progress Note ---
Date of Service December 16, 2023 Assessment & Plan (1) BRBPR (bright red blood per rectum): Plan: concern for acute diverticulitis, CT shows thickened colon Zosyn cultures concern for GI bleed has lessened as has stable hgb (2) Acute hypokalemia: (3) SSS (sick sinus syndrome): (4) Pacemaker: Admission and Anticipated Discharge Date Admission Date: December 15, 2023 Results & Data Results & Data Vital Signs (Past 12 Hours) Vital Signs Temp Pulse Pulse Pulse Resp BP Pulse Ox 12/16/23 07:17 97.7 F 81 16 111/72 94 12/16/23 06:59 70 12/16/23 03:40 97.9 F 70 16 96/59 L 98 12/15/23 23:54 97.7 F 71 16 103/66 99 12/15/23 23:41 97.7 F 71 16 103/66 99 12/15/23 23:39 70 12/15/23 23:17 69 17 108/65 97 12/15/23 21:32 70 16 110/79 99 12/15/23 20:00 70 O2 Del Method 12/16/23 07:17 Room Air 12/16/23 06:59 12/16/23 03:40 Room Air 12/15/23 23:54 Room Air 12/15/23 23:41 Room Air 12/15/23 23:39 12/15/23 23:17 Room Air 12/15/23 21:32 Room Air 12/15/23 20:00 PG Care Time/CCT Total # of Minutes Spent Total Time Spent with Patient: Total time spent is greater than 50% in coordination of care (as documented) at patient's floor/unit and/or counseling patient: Coding Diagnoses BRBPR (bright red blood per rectum) K62.5 Acute hypokalemia E87.6 SSS (sick sinus syndrome) I49.5 Pacemaker Z95.0
[2023-12-16] MEDS ORDERED: POTASSIUM CHLORIDE / WTR 10 MEQ/100 ML PLCT IV SCH (07:30)
[2023-12-16] MEDS: POTASSIUM CHLORIDE 10 MEQ TABCR PO ONE (08:46)
[2023-12-16] MEDS: PANTOprazole 40 MG/10 ML SYR IV SCH (08:46)
--- NOTE | 2023-12-16 08:58 | Gastrointestinal Consultation ---
Date of Consultation December 16, 2023 Assessment & Plan (1) BRBPR (bright red blood per rectum): Pleasant woman with rectal bleeding and lower abdominal pain. CT suggests colitis and I suspect she has an acute infectious enteritis especially with the nausea as well. CT does not really look like diverticulitis. I agree with antibiotics and suspect she will improve over next 24-48 hours. Ischemic colitis is also possible. This could be IBD but this is too acute to make that call now. I don't think colonoscopy is needed now. History of Present Illness Reason for Consultation: rectal bleeding Attending Physician: Sarwat Garcia MD History of Present Illness 58 year old female with one day of rectal bleeding and lower abdominal pain. The blood is described as bright red and at the bottom of the toilet. She passed this blood four times over yesterday. She describes pain across her lower abdomen as well. She denies fever or chills. She does have quite a bit of nausea. She has never had an episode like this before. She had a colonoscopy two years ago that was unremarkable. Allergies Allergy/AdvReac Type Severity Reaction Status Date / Time etomidate Allergy Mild UNKNOWN Verified 12/15/23 21:38 REACTION Home Medications Medication Instructions Recorded Confirmed Type calcium carbonate 600 mg PO QAM 10/10/19 12/15/23 History hydrochlorothiazide 25 mg tablet 25 mg PO DAILY PRN edema #90 tabs 08/31/23 12/15/23 Rx alendronate 70 mg tablet 70 mg PO WK 12/15/23 12/15/23 History cholecalciferol (vitamin D3) 25 25 mcg PO QAM 12/15/23 12/15/23 History mcg (1,000 unit) tablet (Vitamin D3) Patient History Medical History History of bradycardia PACEMAKER INSERTION History of COVID-19 08/30/2021- FLU LIKE SYMPTOMS, ACHY, FATIGUE, CHILLS, FEVER, NO HOSPITALIZATION, NO CURRENT ISSUES Surgical History Hx of colonoscopy S/P abdominal hysterectomy S/P placement of cardiac pacemaker H/O oral surgery S/P section S/P appendectomy History of ankle surgery H/O: hysterectomy Family History Father Coronary heart disease Diabetes Nephrolithiasis Mother Osteoporosis Aortic aneurysm Grandmother (Maternal) Osteoporosis Sister Nephrolithiasis Other Myocardial infarction Denies family history of Ovarian cancer Prostate cancer Breast cancer Colorectal cancer Social History Smoking Status: Never smoker Second Hand Exposure: No; Do You Dip or Chew Tobacco: No; Hx Alcohol Use: Yes Hx Substance Use: No Preferred Language: Ukrainian Communication Ability: Effective Visual Impairment: No Limitations Hearing Ability: Normal Research Psychologist Required: No Beliefs That Will Affect Care: None marital status: Current Living Situation: Spouse current occupational status: employed Other Information That Helps Us Care for You: No Feels Safe at Home: Yes Safety Concerns: Feels Safe At This Time Childhood Exposure to Second-Hand Smoke: No Dental Care, Regularly: Yes Physical Activity Frequency: 1-2 Times per Week Seatbelt Use: always Assistive Devices: Contacts Review of Systems Review of Systems: All systems reviewed & are unremarkable except as noted in HPI & below Physical Exam Constitutional: WD/WN, vitals as above Neck: trachea midline, no thyromegaly Respiratory: normal respiratory effort, lungs clear to auscultation Cardiovascular: RRR, no murmur, no edema Gastrointestinal (Abdomen): Inspection/Auscultation: abdomen normal to inspection Percussion/Palpation: + abdomen tender (across lower abdomen) and abdomen soft; no hepatosplenomegaly Results & Data Vital Signs (Past 12 Hours) Vital Signs Temp Pulse Pulse Pulse Resp BP Pulse Ox 12/16/23 07:17 36.5 C 81 16 111/72 94 12/16/23 06:59 70 12/16/23 03:40 36.6 C 70 16 96/59 L 98 12/15/23 23:54 36.5 C 71 16 103/66 99 12/15/23 23:41 36.5 C 71 16 103/66 99 12/15/23 23:39 70 12/15/23 23:17 69 17 108/65 97 12/15/23 21:32 70 16 110/79 99 O2 Del Method 12/16/23 07:17 Room Air 12/16/23 06:59 12/16/23 03:40 Room Air 12/15/23 23:54 Room Air 12/15/23 23:41 Room Air 12/15/23 23:39 12/15/23 23:17 Room Air 12/15/23 21:32 Room Air Laboratory Results 12/15/23 12/15/23 Range/Units 21:35 19:06 WBC 13.66 H (4.8-10.8) K/ul RBC 4.72 (4.20-5.40) M/uL Hgb 15.9 (12.0-16.0) g/dl Hct 43.7 (37.0-47.0) % MCV 92.6 (80.0-100.0) fL MCH 33.7 (25.0-34.0) pg MCHC 36.4 H (32.0-36.0) g/dL RDW Std Deviation 42.1 (36.4-46.3) fL RDW Coeff of Miles 12.3 (11.5-14.5) % Plt Count 285 (130-400) K/uL MPV 10.4 (9.4-12.4) fL Immature Gran % (Auto) 0.4 % Neut % (Auto) 76.6 % Lymph % (Auto) 16.8 % Tama % (Auto) 5.8 % Eos % (Auto) 0.1 % Baso % (Auto) 0.3 % Neut # (Auto) 10.48 H (1.40-6.50) K/uL Lymph # (Auto) 2.29 (1.20-3.40) K/uL Tama # (Auto) 0.79 H (0.11-0.59) K/uL Eos # (Auto) 0.01 (0.00-0.50) K/uL Baso # (Auto) 0.04 (0.00-0.20) K/uL Immature Gran # (Auto) 0.05 (0.01-0.20) K/uL PT 11.4 (9.0-12.0) Seconds INR 1.1 (0.9-1.1) Sodium 141 (136-145) mmol/L Potassium 3.0 L (3.5-5.1) mmol/L Chloride 100 (98-107) mmol/L Carbon Dioxide 31 (21-32) mmol/L Anion Gap 10 (3-11) BUN 11 (6-23) mg/dl Creatinine 0.89 (0.6-1.2) mg/dl Est Cr Clr Drug Dosing 53.8 ml/min eGFR 74.64 BUN/Creatinine Ratio 12.4 (10-20) Glucose 88 (70-99(Fasting)) mg/dl Lactate 1.2 (0.4-2.0) mmol/L Calcium 10.1 (8.6-10.3) mg/dl Magnesium 2.1 (1.7-2.4) mg/dl Total Bilirubin 1.0 (0.2-1.0) mg/dl AST 19 (13-39) U/L ALT 25 (7-52) U/L Alkaline Phosphatase 66 (34-104) U/L Total Protein 7.5 (6.0-8.3) gm/dl Albumin 5.1 H (3.4-5.0) gm/dl Globulin 2.4 L (2.5-4.0) gm/dl Albumin/Globulin Ratio 2.1 H (0.9-2) Lipase 72 (11-82) U/L HCG, Qual Negative (Negative) Urine Color Yellow Urine Appearance Clear (Clear) Urine pH 5.5 (4.5-7.5) Ur Specific Winger 1.026 (1.000-1.030) Urine Protein Trace H (Negative) Urine Glucose (UA) Negative (Negative) Urine Ketones Trace H (Negative) Urine Blood Negative (Negative) Urine Nitrite Negative (Negative) Urine Bilirubin Negative (Negative) Urine Urobilinogen Negative (Negative) Ur Leukocyte Esterase Trace H (Negative) Urine WBC (Auto) 11-20 H (0-5) /hpf Urine RBC (Auto) 0-2 (0-2) /hpf U Hyaline Cast (Auto) 0-2 (0-2) /lpf U Epithel Cells (Auto) 0-2 (0-2) /hpf Urine Bacteria (Auto) None Seen (None Seen) Blood Type O Positive Antibody Screen NEGATIVE Diagnostic Findings Abdomen/Pelvis CTA 12/15/23 18:59 Exam(s): CTA ABDOMEN + PELVIS With Contrast IV Amt: OPTIRAY 320 119ML EXAM: CT Angiography Abdomen and Pelvis With Intravenous Contrast CLINICAL HISTORY: abd pain; right red blood per rectum. TECHNIQUE: Axial computed tomographic angiography images of the abdomen and pelvis with intravenous contrast. CTDI is 20.96 mGy and DLP is 400.16 mGy-cm. Automated exposure control was utilized for the study. A dose lowering technique was utilized adhering to the principles of ALARA. MIP reconstructed images were created and reviewed. CONTRAST: Patient received OPTIRAY 320 119ML of IV contrast COMPARISON: No relevant prior studies available. FINDINGS: VASCULATURE: Aorta: No acute findings. No abdominal aortic aneurysm. No dissection. Celiac trunk and mesenteric arteries: No acute findings. No occlusion or significant stenosis. Renal arteries: No acute findings. No occlusion or significant stenosis. Iliac arteries: No acute findings. No occlusion or significant stenosis. Lung bases: Unremarkable. No mass. No consolidation. ABDOMEN: Liver: Hepatic steatosis. Gallbladder and bile ducts: Unremarkable. No calcified stones. No ductal dilation. Pancreas: Unremarkable. No ductal dilation. No mass. Spleen: Unremarkable. No splenomegaly. Adrenals: Unremarkable. No mass. Kidneys and ureters: Unremarkable. No hydronephrosis. No solid mass. Stomach and bowel: Precontrast imaging was not performed, limiting evaluation, given scattered hyperdense material throughout several mid to distal small bowel loops in the pelvis. No evidence for bowel obstruction. There is asymmetric mucosal thickening throughout the colon, most prominent involving the distal descending and sigmoid segments with subtle pericolonic fat stranding and hyperemia. No active intraluminal arterial contrast extravasation noted. Stomach is moderately distended with fluid and gas. There is minimal hyperdensity within the gastric rugae along the posterior lateral aspect of the mid body of the stomach. No gastric wall thickening. PELVIS: Appendix: No findings to suggest acute appendicitis. Bladder: Unremarkable. No mass. Reproductive: Status post hysterectomy. ABDOMEN and PELVIS: Intraperitoneal space: Unremarkable. No significant fluid collection. No free air. Bones/joints: No acute fracture. No dislocation. Soft tissues: Unremarkable. Lymph nodes: Unremarkable. No enlarged lymph nodes. IMPRESSION: 1. Precontrast imaging was not performed, limiting evaluation, given scattered hyperdense material throughout several mid to distal small bowel loops in the pelvis. 2. No evidence for bowel obstruction. There is asymmetric mucosal thickening throughout the colon, most prominent involving the distal descending and sigmoid colonic segments with subtle pericolonic fat stranding and hyperemia. No active intraluminal arterial contrast extravasation noted. However, this is the presumed site of the reported GI bleed. Given the most prominent abnormal findings, this is favored over a small bowel source given the clinical history and CT findings. Inflammatory or infectious colitis is the primary consideration. No pneumatosis or pneumoperitoneum. Electronically signed by: Ezekiel Farah MD 12/15/23 21:17 PM
[2023-12-16 11:09] LABS: Adenovirus F 40/41 PCR Not Detected (NotDetected); Astrovirus PCR Not Detected (NotDetected); Campylobacter PCR Not Detected (NotDetected); Cryptosporidium PCR Not Detected (NotDetected); Cyclospora cayetanensis PCR Not Detected (NotDetected); Entamoeba histolytica PCR Not Detected (NotDetected); Enteroaggregative E.coli(EAEC) Not Detected (NotDetected); Enteropathogenic E.coli (EPEC) Not Detected (NotDetected); Enterotoxigenic E.coli (ETEC) Not Detected (NotDetected); Giardia lamblia PCR Not Detected (NotDetected); Norovirus GI/GII PCR Not Detected (NotDetected); Plesiomonas shigelloides PCR Not Detected (NotDetected); Rotavirus A PCR Not Detected (NotDetected); Salmonella PCR Not Detected (NotDetected); Sapovirus PCR Not Detected (NotDetected); Shiga-like Toxin E.coli (STEC) Not Detected (NotDetected); Shigella/Enteroinvasive E.coli Not Detected (NotDetected); Vibrio cholerae PCR Not Detected (NotDetected); Vibrio species PCR Not Detected (NotDetected); Yersinia enterocolitica PCR Not Detected (NotDetected)
[2023-12-16 11:12] VITALS: BP 93/60; TEMP 97.9; O2SAT 96
[2023-12-16 11:32] LABS: Cdiff Antigen Negative; Cdiff Toxin A+B Negative Cdiff Toxin (Negative); Cdiff Toxin B Gene (2yr or >) Positive Cdiff Gene (Neg)
[2023-12-16] MEDS: metroNIDAZOLE 500 MG TAB PO STA (12:18)
[2023-12-16] MEDS: CIPROFLOXACIN 500 MG TAB PO STA (12:18)
[2023-12-16 12:43] VITALS: PULSE 69
--- NOTE | 2023-12-16 12:52 | Discharge Summary ---
Discharge Summary Date of Service December 16, 2023 Principal Dx & Hospital Course #1 = Principal Diagnosis (1) BRBPR (bright red blood per rectum): concern for acute diverticulitis, CT shows thickened colon another discussion is ischemic colitis, does have history of sss, did have device interogation 09/28 with svt but not mention of afib etc pain has resolved, biofire negative, c diff gene + toxin negative concern for GI bleed has lessened as has stable hgb will have home on cipro/flagyl with GI follow up (2) Acute hypokalemia: replete (3) SSS (sick sinus syndrome): (4) Pacemaker: Notes For Next Care Provider if concern for ischemic colitis, may consider closer rhythm monitoring in pacer and or Cardiology follow up to eval for ischemic etiology Admission HPI Per Admitting Provider The patient is a 58-year-old female with a past medical history including GERD, colon polyps, bilateral pubic rami fractures, GERD, hypertriglyceridemia, SSS status post pacemaker, hip fracture, and osteoporosis. She presents to the emergency department with symptoms as noted above. As part of her workup, she did undergo CTA of abdomen and pelvis, which showed mucosal thickening throughout most of the colon, with most prominent in the distal descending colon and sigmoid colon, with inflammatory versus infectious colitis as a diagnosis of exclusion. Discharge Exam awake and alert, no distress abd is soft and mild tenderness no rebound, low abd across Discharge Plan Discharge Items Patient Disposition: Home - Self-Care Reason For Visit: DIVERTICULITIS, BRBPR, LOWER GI BLEED Discharge Diagnosis: diverticultitis lower gi bleed Activity: Resume your previous activity Non-emergency contact: Primary Care Provider and Health/Safety Job Titles Call non-emergency contact if: your symptoms worsen Follow-up/Referrals: Miguel Yee MD [Primary Care Provider] - Diet: Low Fiber Addtl Attending Provider Instructions: please keep well hydrated and eat a low fiber diet Please make a follow up appointment with Gastroenterology complete all of your antibiotics, as will all antibiotics, consider a probiotic that can be just yogurt or cottage cheese daily to help reduce gi irritation from antibiotics always return if you have any issues, Pending Studies at Discharge: No Stand-Alone Forms: [employer], Smoking Cessation Medications and DC Order Prescriptions: New ciprofloxacin HCl 500 mg tablet 500 mg PO BID Qty: 28 0RF metronidazole 500 mg tablet 500 mg PO BID 14 Days Qty: 28 0RF Continued calcium carbonate 600 mg calcium (1,500 mg) tablet 600 mg PO QAM hydrochlorothiazide 25 mg tablet 25 mg PO DAILY PRN (Reason: edema) Qty: 90 2RF alendronate 70 mg tablet 70 mg PO WK Rx Instructions: MONDAYS cholecalciferol (vitamin D3) [Vitamin D3] 25 mcg (1,000 unit) Tablet 25 mcg PO QAM Discharge Orders: Discharge Order (Routine); Ordered 12/16/23 Ordered By: Sarwat Garcia Admission Data Admit Date/Time: 12/15/23 22:32 Attending Provider: Sarwat Garcia Admit Provider: Abraham Handy Primary Care Provider: Miguel Yee Other Providers: Abraham Handy; Marilee Bellamy Jr Other Interventions: Discharge Summary Assessment (RN) Last Done: 12/16/23 12:42 Hospital Stay Data Consultations 12/15/23 21:36 ED Decision to Admit Stat 12/15/23 22:32 Consult Gastroenterology Routine Diagnostic Imagining Performed 12/15/23 18:59 CTA abdomen pelvis w con [CT angio abdomen pelvis w con] Stat Pending Results Patient Have Any Pending Studies at Discharge: No Discharge Instructions Given to Patient (Per Discharging Provider) please keep well hydrated and eat a low fiber diet Please make a follow up appointment with Gastroenterology complete all of your antibiotics, as will all antibiotics, consider a probiotic that can be just yogurt or cottage cheese daily to help reduce gi irritation from antibiotics always return if you have any issues, Total Time Total Time Spent Total Time Spent (In Minutes): It required greater than 30 minutes to prepare this patient for discharge. Coding Level of Care Code 86168 INP/OBS DISCH >30 MIN Diagnoses BRBPR (bright red blood per rectum) K62.5 Acute hypokalemia E87.6 SSS (sick sinus syndrome) I49.5 Pacemaker Z95.0
== END 2023-12-16 13:20 | disposition home or self-care (01) | DRG 379 ==
LOC: ED 18:44 → SUATTDRO 22:32 → 2W 22:32 → INTOOBSV 22:32 → 2W 23:20